=== PATIENT | male | born 1980 | race Caucasian/White ===

== ENCOUNTER 2024-06-21 13:56 | Outpatient (REF) | payer MEDICAID, SELFPAY ==
[2024-06-21 18:54] LABS: HCT 43.1 % (40.0-50.0); HGB 14.6 g/dL (13.5-17.5); MCH 29.4 pg (27.0-33.0); MCHC 33.9 % (32.0-36.0); MCV 87 fL (80-95); MPV 10.6 fL (8.0-11.0); Platelet Count 191 10^3/uL (130-400); RBC 4.96 10^6/uL (4.36-5.78); RDW 12.6 % (11.8-14.1); RDW-SD 39.4 fL; WBC 5.85 10^3/uL (4.4-10.8)
[2024-06-21 20:42] LABS: Hemoglobin A1C 5.4 % (<5.7)
[2024-06-21 21:57] LABS: ALT 22 U/L (16-63); AST 22 U/L (15-37); Albumin 4.3 g/dL (3.4-5.0); Alkaline Phosphatase 55 U/L (46-116); Anion Gap 9.6 mmol/L (3-11); BUN 19 mg/dL (7-18); Bilirubin, Total 1.5 mg/dL (0.2-1.0); CO2 26.4 mmol/L (21.0-32.0); CREATININE 0.8 mg/dL (0.70-1.30); Calcium 9.1 mg/dL (8.5-10.1); Calculated LDL 163 mg/dL (<100); Chloride 103 mmol/L (98-107); Cholesterol 238 mg/dL (<200); Estimated GFR 112.61 (mL/min/1.73m2); Glucose 93 mg/dL (74-106); HDL Cholesterol 64 mg/dL (>or=40); Magnesium 2.2 mg/dL (1.8-2.4); Potassium 4.1 mmol/L (3.5-5.1); Sodium 139 mmol/L (136-145); TSH (W/Ref FT4) 1.37 uIU/mL (0.36-3.74); Total Protein 7.3 g/dL (6.4-8.2); Triglyceride 57 mg/dL (<150)
== END 2024-06-21 13:57 | disposition home or self-care (01) ==
LOC: NCHCN 13:56
PROVIDERS: PCP Family Medicine; Visit Provider Family Medicine
DX: G43.109 Migraine with aura, not intractable, without status migrainosus (principal); Z13.1 Encounter for screening for diabetes mellitus
CPT/HCPCS: 80053; 80061; 85027; 83036; 83735; 84443

== ENCOUNTER 2024-07-12 01:12 | Outpatient (CLI) | payer MEDICAID, SELFPAY ==
--- NOTE | 2024-07-12 | DI.US_ITS ---
Exam(s) US SCROTUM EXAM: US SCROTUM CLINICAL HISTORY: ACQUIRED HYDROCELE, N43.3, HX HYDROCELE/TESTICULAR CYSTS TECHNIQUE: Ultrasound of the testes performed using grayscale, color, and Doppler imaging. COMPARISON: No exams were available for comparison FINDINGS: RIGHT HEMISCROTUM: The right testicle exhibits normal size and echo architecture with no evidence of intratesticular mas s. Vascular flow was demonstrated within the right testicle, including arterial waveforms. The epididymis appears unremarkable. There are no epididymal head cysts. There is a small right hydrocele. No varicocele. LEFT HEMISCROTUM: There is a large left-sided hydrocele noted which does not appear septated. This is sealed measures a pproximately 7 x 3.4 x 5.3 cm. The left testicle size is smaller than the left, measuring 2.8 x 3.2 x 3.3 cm. No evidence of Intrate sticular mass. Vascular flow is demonstrated within the left testicle, including arterial waveforms. There is no epididymal head cyst measuring 5 x 5 x 7 mm. No varicoceles IMPRESSION: 1. No evidence of testicular mass nor testicular torsion. Testicle is smaller than the right testicle but without evidence of torsion. 2. Large left-sided hydrocele with measurements as above. There no septate nor obvious concerning nod ules evident within the hydrocele on these images. 3. No varicoceles evident DATA REPOSITORY:
--- NOTE | 2024-07-12 13:52 | DI.RAD_ITS ---
Exam(s) XR LUMBAR SPINE COMPLETE EXAM: XR LUMBAR SPINE COMPLETE CLINICAL HISTORY: CHRONIC MIDLINE LOW BACK PAIN WO SCIATICA, M54.50, G89.29 CHRONIC PAIN. TECHNIQUE: 2D digital imaging was performed of the lumbar spine. Five images were obtained. AP, la teral, right oblique, left oblique and L5-S1 spot views were obtained. COMPARISON: No exams were available for comparison FINDINGS: BONES: No fracture or destructive lesion. There are small endplate osteophytes seen at L4-5. no facet hypertrophy identified. DISKS: There is mild disc space narrowing at L4-5 and L5-S1. ALIGNMENT: Lumbar spinal alignment is within normal limits. No spondylolysis or spondylolisthesis. SOFT TISSUE: Normal. IMPRESSION: Mild degenerative changes seen in the lower lumbar spine. DATA REPOSITORY: RADIATION DOSE DELIVERED:
== END 2024-07-12 01:32 ==
LOC: DI 01:12
PROVIDERS: PCP Family Medicine; Visit Provider Family Medicine
DX: M51.360 Other intervertebral disc degeneration, lumbar region with discogenic back pain only (principal); N43.3 Hydrocele, unspecified
CPT/HCPCS: 72110; 76870

== ENCOUNTER 2024-10-17 08:00 | Day surgery (SDC) | payer MEDICAID, SELFPAY ==
[2024-10-17] VITALS (20 sets, daily range): BP systolic 94–122; BP diastolic 46–72; PULSE 48–60; RESP 12–21; TEMP 36.1–37; O2SAT 97–100; BMI 22.4
--- NOTE | 2024-10-17 06:32 | ANES.PREOP_ITS ---
General Info Date of Service Date Performed: 10/17/24 Height: 6 ft 1 in Weight: 77.111 kg Body Mass Index (BMI): 22.4 Surgical Procedure: Operation Date: 10/17/24 10:40 Proposed Procedure Side Surgeon p Hydrocelectomy Left Anshu Ayoub MD Meds Allergies and Home Medications Allergies Allergy/AdvReac Type Severity Reaction Status Date / Time hops AdvReac Unknown Headache Verified 10/17/24 08:17 soy AdvReac Unknown Other (See Verified 10/17/24 08:17 Comment) Home Medication ?Medication ?Instructions ?Recorded clotrimazole 1 %-betamethasone See Rx Instructions top ical 06/22/24 0.05 % cream-zinc ox 20 % paste .COMPLEX topical sumatriptan succinate 50 mg tablet See Rx Instructions PO .COMPLEX 06/22/24 Current Visit Medications: Current Medications Generic Name Dose Route Start Last Admin Trade Name Freq PRN Reason Stop Dose Admin Ringer's Solution 1,000 mls @ 80 mls/hr 10/17/24 06:00 IV 11/13/24 23:59 INFUSION BRANDI Cefazolin Sodium/Dextrose 2 gm in 50 mls @ 100 mls/hr 10/17/24 06:00 Ancef Duplex IVPB 11/13/24 23:59 PREOP BRANDI IV Miscellaneous Supplies 1 each 10/17/24 06:00 Iv Access IV 11/13/24 23:59 DIRECTED BRANDI Sodium Chloride 0 ml 10/17/24 06:00 Normal Saline Flush 10 Ml Syr IV 11/13/24 23:59 PRN PRN Sodium Chloride 0 ml 10/17/24 06:00 Normal Saline 10 Ml Vial IJ 11/13/24 23:59 DIRECTED PRN Sterile Water 0 ml 10/17/24 06:00 Water,Injection,Sterile 10 Ml Vial IJ 11/13/24 23:59 DIRECTED PRN PFSH Active Problems Active Problems: Problem Status Onset Code Disorder of male genital organ Acute N50.9 Lower back pain Acute M54.50 Skin cyst Acute L72.9 Tobacco Smoking/Tobacco Use Status: Former Tobacco Use Alcohol Alcohol Intake: former Substance Use Substance use: Never Substance use type: does not use Vital Signs and Lab Results Vital Signs Most Recent Vital Signs in EMR: Temp Pulse Resp BP Pulse Ox 36.5 C 56 L 16 122/72 99 10/17/24 08:03 10/17/24 08:03 10/17/24 08:03 10/17/24 08:03 10/17/24 08:03 Anesthesia Assessment and Plan Anesthesia History Personal History: No History of General Anesthesia Family History: No Family History of Anesthesia Complications Exercise Tolerance Exercise Tolerance: Metabolic Equivalents>4 Pertinent Negatives Pertinent Negatives: No Major Cardiovascular Symptoms or Complaints and No Major Pulmonary Symptoms or Complaints Cardiac & Pulmonary Exam Cardiac Exam: Normal S1/S2 Heart Sounds Pulmonary Exam: Clear Bilateral Breath Sounds Implantable Cardiac Device Does patient have a Pacemaker or an ICD?: No Airway Exam Known Difficult Airway: No Mallampati Class: 1 Mouth Opening: Normal (> 3cm) Thyromental Distance: Greater than 3 cm Neck Range of Motion: Full ROM Neck Circumference: Normal Teeth Condition: Normal Dentition ASA Classification ASA Score: ASA 1 Emergency Case?: No NPO Status NPO Status: NPO Clears >2 hours, Solids >8 hours Anesthesia Plan Resuscitation Status: Full Code Anesthesia Technique: General Anesthesia Airway Planned: LMA Monitors Used: Standard Monitors Preoperative Comments:: 44 yo for hydrocelectomy. Sig PMHx: migraine, former smoker.
--- NOTE | 2024-10-17 08:35 | HPE_ITS ---
Date of service: 10/17/24 Time of Service: 08:35 Assessment and Plan Assessment and plan (1) Disorder of male genital organ: Status: Acute Assessment and plan: Since his hydrocele is symptomatic, we will move ahead with a left hydrocelectomy. History of Present Illness History of Present Illness Chief Complaint: Hydrocele Narrative: This is a 44-year-old gentleman who has been identified as having a left hydrocele. Over the years, the hydrocele has increased in size and become more symptomatic. He presents for hydrocelectomy. Review of Systems Narrative: No fevers or chills No vision change or dysphasia No diabetes or thyroid dysfunction No shortness of breath, cough or hemoptysis No chest pain or palpitations No nausea, vomiting, hepatitis, ulcers, jaundice No seizures, strokes or peripheral neuropathy No bleeding disorders or anemia No gout PFSH All Active Problems Disorder of male genital organ (Acute) Lower back pain (Acute) Skin cyst (Acute) Left neck, inferior to ear Social History Smoking/Tobacco Use Status: Former Tobacco Use Quit Date: 02/10/20 Smoking risk assessment performed?: Yes Alcohol Intake: former Drug use: Never Substance use type: does not use Housing: house Do you feel safe at home: Yes Do you feel safe in your relationship?: Yes Meds Allergies and Home Medications Allergies Allergy/AdvReac Type Severity Reaction Status Date / Time hops AdvReac Unknown Headache Verified 10/17/24 08:17 soy AdvReac Unknown Other (See Verified 10/17/24 08:17 Comment) Home Medications ?Medication ?Instructions ?Recorded ?Confirmed ?Type clotrimazole 1 %-betamethasone See Rx Instructions top ical 06/22/24 10/17/24 History 0.05 % cream-zinc ox 20 % paste .COMPLEX topical sumatriptan succinate 50 mg tablet See Rx Instructions PO .COMPLEX 06/22/24 10/17/24 History Exam Const General: cooperative Neck Neck: supple Resp Effort & Inspection: normal respiratory effort Auscultation: clear to auscultation bilaterally Cardio Rate: regular rate Rhythm: regular rhythm GI Inspection: normal to inspection Palpation: no masses Scrotum: hydrocele on the left Neuro General: patient alert, patient awake and patient oriented x3 Results Last Vital Signs Temp 36.5 C 10/17/24 08:03 Pulse 56 L 10/17/24 08:03 Resp 16 10/17/24 08:03 BP 122/72 10/17/24 08:03 Pulse Ox 99 10/17/24 08:03 Time Spent Time spent with Patient: <40 minutes Time was spent: other
[2024-10-17] MEDS: Lactated Ringers 1,000 ML 80 ML IV (09:00)
[2024-10-17] MEDS: ceFAZolin 2 GM/50 ML BAG IVPB (09:07)
[2024-10-17] MEDS: Bupivacaine 0.25% Pres-Free 30 ML VIAL (09:23)
--- NOTE | 2024-10-17 09:48 | W.PM.DSUDISC ---
Date of service: 10/17/24 Discharge Plan Disposition Patient Disposition: Home Condition: Stable Discharge Details Reason For Visit: hydrocelectomy Attending Provider: Anshu Ayoub Primary Care Provider: Spenser Lui Home Meds and New Rx's Prescriptions: New tramadol 50 mg tablet 50 mg PO Q6H MDD 4 PRN (Reason: pain) Qty: 20 0RF Rx Instructions: may take with tylenol and NSAIDs No Action clotrimazole-betameth dip-zinc 1-0.05-20 % combo pack See Rx Instructions topical .COMPLEX Rx Instructions: apply CLOTRIMAZOLE/BETAMETHASONE CREAM twice daily: use ZINC OXIDE PASTE as needed/as directed topical sumatriptan succinate 50 mg tablet See Rx Instructions PO .COMPLEX Rx Instructions: take 1 tab at onset of headache; if no relief may repeat 1 tab after at least 2 hrs; max = 4 tabs/24 hr PO Discharge Instructions Additional Instructions: No straining or lifting over 10 pounds for a minimum of 7 days. Ice after that, you may increase your activity as tolerated Please wear tight supportive clothing and use ice packs to the scrotum (a bag of frozen peas works well) for 30 minutes on and 30 minutes off while you are awake for the first 48 hours You may shower tomorrow morning, get the bandage on the scrotum wet and then remove the bandage. Follow-up appointment in my office in 4 to 6 weeks Activity:: no straining/lifting over 10 pounds Remove Dressings/Wound Care:: 24 hours Shower/Bathe:: 24 hours Discharge Orders Discharge Orders: Discharge Order (Routine); Ordered 10/17/24 Ordered By: Anshu Ayoub DS: Diagnosis Discharge Diagnosis (1) Disorder of male genital organ: Status: Acute
--- NOTE | 2024-10-17 09:54 | ROE_ITS ---
Operative Note Operative Note PRE-OP DIAGNOSIS: Left hydrocele POST-OP DIAGNOSIS: same PROCEDURE: left hydrocelectomy SURGEON: Anshu Ayoub ANESTHESIA TYPE: Local By Surgeon and General LMA/ETT Refer to Anesthesia Record ESTIMATED BLOOD LOSS: 5 PATHOLOGY: none sent COMPLICATIONS: None Patient was transported to: PACU Patient's condition: stable Implants: none Indications: This is a 44-year-old gentleman who has a history of left scrotal enlargement. On examination and on ultrasound, he is found to have a left hydrocele. Over the years, the hydrocele has been increasing in size and has become more symptomatic. He presents for hydrocelectomy Findings: Hydrocele with small keratin nickolas Procedure Description: The patient was given antibiotics and brought to the operating room on 10/17/2024. After successful induction of general anesthesia, he was placed in the supine position. His genitalia was prepped and draped. A field block was performed on the left hemiscrotum using quarter percent Marcaine. The scrotal skin was incised transversely and the dartos muscle was divided. This allowed us to come down on the left testis still within the tunica vaginalis. The testis was then delivered through the incision. We then dissected the exterior of the tunica vaginalis from its surrounding connective tissue. We then opened the tunica vaginalis anteriorly and yellow hydrocele fluid was drained. A small keratin nickolas was also identified. The skin edges of the tunica vaginalis were then cauterized. The edges of the tunica were then reapproximated behind the testis using a segment of locking 3-0 chromic suture. The testis itself appeared normal. A spermatic cord block was performed using quarter percent Marcaine without epinephrine. Once hemostasis had been obtained, the testis was delivered back within the left hemiscrotum. The dartos muscle was reapproximated using a segment of running 4- 0 Vicryl suture. The skin was closed with a subcu reticular 4-0 Vicryl suture followed by skin glue. A fluff dressing and scrotal support were then applied. The patient tolerated this procedure well with no complications. Date of Procedure: 10/17/24
--- NOTE | 2024-10-17 10:16 | W.ANESPOSTOP ---
Postoperative Evaluation Date, Time and Location Date Performed: 10/17/24 Time Performed: 10:16 Patient Location: PACU Vital Signs Most Recent Imported Vital Signs: Most Recent Vital Signs Temp Pulse Resp BP Pulse Ox 37.0 C 54 L 17 101/50 L 98 10/17/24 10:05 10/17/24 10:01 10/17/24 10:01 10/17/24 10:01 10/17/24 10:01 Assessment Mental Status: Arousable with meaningful communication Airway and Respiratory Function: Patent airway with normal (patient baseline) respiratory exam Cardiovascular Function: Hemodynamically Stable Hydration Status: Adequately Hydrated Nausea & Vomiting: No Nausea or Vomiting Pain: Pain is tolerable per patient Peripheral Nerve Block: Patient did not receive a nerve block
== END 2024-10-17 12:00 | disposition home or self-care (01) ==
PROVIDERS: PCP Family Medicine; Visit Provider Urology
PROC: (CPT 55040; principal; 2024-10-17 09:00)
DX: N43.3 Hydrocele, unspecified (principal); G43.909 Migraine, unspecified, not intractable, without status migrainosus; Z87.891 Personal history of nicotine dependence
CPT/HCPCS: 55040; J0131; J0665; J0690; J1100; J1885; J2003; J2250; J2371; J2405; J2704; J3475